=== PATIENT | male | born 1970 | race American Indian/Alaskan Native ===

== ENCOUNTER 2017-04-14 14:54 | Inpatient (IN) | payer OTHER ==
[2017-04-14] MEDS ORDERED: Sodium Chloride 0.9% 1,000 ML IV STA (15:21)
[2017-04-14] MEDS ORDERED: Labetalol 5 mg/ml Inj 20ML IV STA ×2 (15:29→20:39)
--- NOTE | 2017-04-14 15:32 | ED PDOC ---
Arrival/HPI - General Chief Complaint: Headache Time Seen by Provider: 04/14/17 15:15 Historian: Patient - Critical Care Critical Care Minutes: 30 minutes - History of Present Illness Narrative History of Present Illness (Text): 04/14/17 46yo male w/PMhx of HTN, asthma, alcoholism, come in for evaluation of SOB developed for past few days. Pt describes, " will wake up at night feeling SOB. Also noted some SOB while walking yesterday". Pt admits, (+) cold sx for past few days associated with nasal congestion, sore throat, dry cough. At present time, pt c/o mild frontal headache , described as " squeezing, localized". Otherwise, pt denies known fever, denies severe headache, visual changes, focal deficits, denies neck pain, drooling, dysphagia, dyspnea, CP, wheezing, palpitation, diaphoresis, abd. pain, V/D, back pain, UTI sx. On triage fever noted and HTN. Pt admits did not take his BP medication today. Pt recall last stress test- 8 months ago, was normal. Last alcohol intake- this AM " glass of scotch". Ambulate to Ed for evaluation, strong alcohol odor noted. Past Medical History - Provider Review Nursing Documentation Reviewed: Yes - Travel History Have you recently traveled outside [place] w/in the past 3 mons?: No - Infectious Disease Hx of Infectious Diseases: None - Tetanus Immunization Tetanus Immunization: Unknown - Cardiac Hx Hypertension: Yes - Pulmonary Hx Respiratory Disorders: No - Neurological Hx Neurological Disorder: No - HEENT Hx HEENT Disorder: No - Renal Hx Renal Disorder: No - Endocrine/Metabolic Hx Endocrine Disorders: No - Hematological/Oncological Hx Blood Disorders: No - Integumentary Hx Dermatological Disorder: No - Musculoskeletal/Rheumatological Hx Musculoskeletal Disorders: No - Gastrointestinal Hx Gastrointestinal Disorders: No - Genitourinary/Gynecological Hx Genitourinary Disorders: No - Psychiatric Hx Substance Use: No Other/Comment: Sleep Difficulties - Anesthesia Hx Anesthesia: Yes Hx Anesthesia Reactions: No Hx Malignant Hyperthermia: No Family/Social History - Physician Review Nursing Documentation Reviewed: Yes Family/Social History: No Known Family HX Smoking Status: Heavy Smoker > 10 Cigarettes Daily Hx Alcohol Use: Yes Hx Substance Use: No Allergies/Home Meds Allergies/Adverse Reactions: Allergies No Known Allergies Allergy (Verified 04/25/16 07:44) Home Medications: Home Meds Medication Instructions Recorded Confirmed Nebivolol [Bystolic] 20 mg PO DAILY 04/14/17 04/14/17 Review of Systems - Physician Review All systems were reviewed & negative as marked: Yes - Review of Systems Constitutional: Fevers Eyes: Normal ENT: Normal Respiratory: SOB, Cough. absent: Wheezing Cardiovascular: Normal. absent: Chest Pain, Orthopnea Gastrointestinal: Normal Genitourinary Male: Normal Musculoskeletal: Normal Skin: Normal Neurological: Headache, Dizziness Endocrine: Normal Hemo/Lymphatic: Normal Psychiatric: Normal Physical Exam Vital Signs Reviewed: Yes Vital Signs Temp Pulse Resp BP Pulse Ox 04/14/17 18:20 100.8 F H 90 18 175/97 H 98 04/14/17 16:43 102 F H 93 H 19 197/102 H 98 04/14/17 15:49 98 H 185/108 H 04/14/17 15:10 102.5 F H 100 H 24 185/108 H 99 Temperature: Febrile Blood Pressure: Hypertensive Pulse: Tachycardic Respiratory Rate: Normal Appearance: Positive for: Well-Appearing, Non-Toxic, Comfortable Pain Distress: Mild Mental Status: Positive for: Alert and Oriented X 3 - Systems Exam Head: Present: Atraumatic, Normocephalic Pupils: Present: PERRL Extroacular Muscles: Present: EOMI Conjunctiva: Present: Normal Ears: Present: NORMAL TM. No: Erythema Mouth: Present: Moist Mucous Membranes, Normal Lips. No: Drooling Pharnyx: No: ERYTHEMA, EXUDATE Nose (Internal): Present: Clear Mucous Neck: Present: Trachea Midline. No: JVD, Bruit (B/L) Respiratory/Chest: Present: Good Air Exchange, Wheezes (scatterdd Left base wheezing. BS equal B/L.). No: Respiratory Distress, Accessory Muscle Use Cardiovascular: Present: Regular Rate and Rhythm, Normal S1, S2. No: Murmurs Abdomen: Present: Normal Bowel Sounds. No: Tenderness, Distention, Peritoneal Signs, Rebound, Guarding Back: No: CVA Tenderness Upper Extremity: Present: Normal ROM. No: Deformity Lower Extremity: Present: Normal ROM. No: Edema, CALF TENDERNESS, Swelling, Deformity Neurological: Present: GCS=15, Speech Normal, Normal Sensory Function, Norm Deep Tendon Reflexes Skin: Present: Warm, Dry, Normal Color. No: Rashes Psychiatric: Present: Alert, Oriented x 3, Normal Insight, Normal Concentration Medical Decision Making ED Course and Treatment: 04/14/17 At 16:43, results review with ED attending, who personally re-evaluated patient. As per , no code sepsis called. Additional blood work, hydration, OBS recommend. At 17:39, pt resting comfortably in bed, not in any apparent distress. fever improved, hemodynamicaly stable. Blood work review, CBC- normal, CMP- high LFT, LDH EKG, CXR review, no acute abnormalities. US gallbladder and pancreas and appears normal study. Case discussed with again, and admission to telemetry with Dx: Fever , SOB, alcohol withdrawal recommend now. Case discussed with Med-on-call and admission arranged. At 19:45, tried to reach med-on-call / covering since 17:40 , no answer. case discussed with Hospitalist and admission arranged to telemetry. - Lab Interpretations Lab Results: 04/14/17 15:30 04/14/17 15:30 Lab Results 04/14/17 17:03: Ammonia 21 04/14/17 17:02: Urine Opiates Screen Negative, Urine Methadone Screen Negative, Ur Barbiturates Screen Negative, Ur Phencyclidine Scrn Negative, Ur Amphetamines Screen Negative, U Benzodiazepines Scrn Negative, U Oth Cocaine Metabols Negative, U Cannabinoids Screen Negative 04/14/17 17:02: Urine Color Yellow, Urine Appearance Clear, Urine pH 6.0, Ur Specific [place] 1.010, Urine Protein Trace H, Urine Glucose (UA) Negative, Urine Ketones Negative, Urine Blood Trace-intact H, Urine Nitrate Negative, Urine Bilirubin Negative, Urine Urobilinogen 0.2, Ur Leukocyte Esterase Negative , Urine RBC 0 - 2, Urine WBC 1 - 3, Ur Epithelial Cells 1 - 3 04/14/17 16:45: Influenza Typ A,B (EIA) Negative for flu a/b 04/14/17 15:30: Alcohol, Quantitative 105 H 04/14/17 15:30: Sodium 134, Chloride 95 L, Potassium 3.6, Carbon Dioxide 24, Anion Gap 18, BUN 7, Creatinine 1.0, Est GFR ( Amer) > 60, Est GFR (Non- Af Amer) > 60, Random Glucose 96, Calcium 9.0, Total Bilirubin 0.6, AST 675 H, ALT 166 H, Alkaline Phosphatase 143 H, Lactate Dehydrogenase 1786 H, Total Creatine Kinase 268 H, CK-MB (CK-2) 0.3, CK-MB (CK-2) % Cancelled, Troponin I < 0.01, Total Protein 8.4 H, Albumin 4.6, Globulin 3.7, Albumin/Globulin Ratio 1.2 , Amylase 84, Lipase 390 H 04/14/17 15:30: PT 13.4 H, INR 1.22 H, APTT 31.9 04/14/17 15:30: pO2 40, VBG pH 7.44 H, VBG pCO2 40.0, VBG HCO3 27.2, VBG Total CO2 28.4 H, VBG O2 Sat (Calc) 81.1 H, VBG Base Excess 2.8 H, VBG Potassium 3.6, Sodium 132.0, Chloride 95.0 L, Glucose 98, Lactate 2.3 H, FiO2 21.0, Venous Blood Potassium 3.6 04/14/17 15:30: WBC 5.7, RBC 4.37, Hgb 13.6 L, Hct 39.8 L, MCV 91.1, MCH 31.1, MCHC 34.2, RDW 13.6, Plt Count 123, MPV 10.9, Gran % 69.8 H, Lymph % (Auto) 18.2 L, [place] % (Auto) 11.5 H, Eos % (Auto) 0.0 L, Baso % (Auto) 0.5, Gran # 3.96 , Lymph # 1.0 L, [place] # 0.7 H, Eos # 0.0, Baso # 0.03 Interpretation: Abnormal lab values - RAD Interpretation Radiology Orders: 04/14/17 15:17 CHEST PORTABLE [RAD] Stat 04/14/17 16:43 GALLBLADDER & PANCREAS [US] Stat CXR: (-) acute consolidation - EKG Interpretation EKG Interpretation (Text): 04/14/17 16:45 SR@92/min, LAD, T wave inversion in III, prolong QT, no acute ST-T changes. - Medication Orders Current Medication Orders: Multivitamins/Vitamin C 10 ml/Thiamine HCl 100 mg/ Folic Acid 1 mg/ Dextrose 1, 011.2 mls @ 1,000 mls/hr IV .Q1H1M ONE Stop: 04/14/17 20:44 Discontinued Medications Acetaminophen (Tylenol 325mg Tab) 975 mg PO STAT STA Stop: 04/14/17 15:22 Last Admin: 04/14/17 15:49 Dose: 975 mg MAR Pain/Vitals Document 04/14/17 15:49 RD (Rec: 04/14/17 15:49 RD [id number]) Pain Reassessment Is This A Pain ReAssessment? No Sleep Is patient sleeping during reassessment? No Presence of Pain Presence of Pain No Sodium Chloride (Sodium Chloride 0.9%) 1,000 mls @ 999 mls/hr IV .Q1H1M STA Stop: 04/14/17 16:21 Last Admin: 04/14/17 15:35 Dose: 999 mls/hr eMAR Start Stop Document 04/14/17 15:35 RD (Rec: 04/14/17 15:43 RD [id number]) Intravenous Solution Start Date 04/14/17 Start Time 15:35 End Date 04/14/17 End time 16:35 Total Infusion Time 60 Labetalol HCl (Trandate) 20 mg IV STAT STA Stop: 04/14/17 15:30 Last Admin: 04/14/17 15:49 Dose: 20 mg eMAR Start Stop Document 04/14/17 15:49 RD (Rec: 04/14/17 15:50 RD [id number]) Intravenous Solution Start Date 04/14/17 Start Time 15:50 End Date 04/14/17 End time 15:52 Total Infusion Time 2 MAR Pulse and Blood Pressure Document 04/14/17 15:49 RD (Rec: 04/14/17 15:50 RD [id number]) Pulse Pulse Rate (60-90) 98 Blood Pressure Blood Pressure (100/60-150/90) 185/108 Lorazepam (Ativan) 2 mg IVP STAT STA PRN Reason: Protocol Stop: 04/14/17 16:43 Last Admin: 04/14/17 16:51 Dose: 2 mg IVP Administration Document 04/14/17 16:51 RD (Rec: 04/14/17 16:52 RD [id number]) Charges for Administration # of IVP Administrations 1 Disposition/Present on Arrival - Present on Arrival Any Indicators Present on Arrival: No History of DVT/PE: No History of Uncontrolled Diabetes: No Urinary Catheter: No History of Decub. Ulcer: No History Surgical Site Infection Following: None - Disposition Have Diagnosis and Disposition been Completed?: Yes Diagnosis: Chest pain, Alcohol withdrawal, Fever Disposition: HOSPITALIZED Disposition Time: 17:12 Patient Plan: Admission Patient Problems: Current Active Problems Problem Status Onset Chest pain Acute Alcohol withdrawal Acute Fever Acute Condition: GOOD Discharge Instructions (ExitCare): Chest Pain (ED) Referrals: Radha Mccoy, [Primary Care Provider] - Follow up with primary Forms: [place] (Khmer)
[2017-04-14 15:47] LABS: VENOUS BLOOD GAS BASE EXCESS 2.8 mmol/L (0.0-2.0); VENOUS BLOOD PH 7.44 (7.32-7.43)
[2017-04-14 15:52] LABS: BASO # 0.03 K/mm3 (0.0-2.0); BASO % 0.5 % (0.0-3.0); GRAN # 3.96 (1.4-6.5); GRAN % 69.8 % (50.0-68.0); HEMATOCRIT 39.8 % (42.0-52.0); LYMPH % 18.2 % (22.0-35.0); MEAN CELL VOLUME 91.1 fl (80.0-105.0); MEAN CORPUSCULAR HEMOGLOBIN 31.1 pg (25.0-35.0); MEAN CORPUSCULAR HGB CONC 34.2 g/dl (31.0-37.0); MEAN PLATELET VOLUME 10.9 fl (7.0-11.0); MONO # 0.7 (0.1-0.6); MONO % 11.5 % (1.0-6.0); RED CELL DISTRIBUTION WIDTH 13.6 % (11.5-14.5); WHITE BLOOD COUNT 5.7 10^3/ul (4.5-11.0)
[2017-04-14 16:07] LABS: ALB/GLOB RATIO 1.2 (1.1-1.8); ALKALINE PHOSPHATASE 143 U/L (38-126); ALT/SGPT 166 U/L (7-56); AMYLASE 84 U/L (35-125); AST/SGOT 675 U/L (17-59); BILIRUBIN,TOTAL 0.6 mg/dL (0.2-1.3); BLOOD UREA NITROGEN 7 mg/dL (7-21); CARBON DIOXIDE 24 mmol/L (21-33); CHLORIDE 95 mmol/L (98-107); GFR AFRICAN-AMERICAN > 60; GLUCOSE,RANDOM 96 mg/dL (70-110); INR 1.22 (0.93-1.08); LIPASE 390 U/L (23-300); PARTIAL THROMBOPLASTIN TIME 31.9 Seconds (25.1-36.5); POTASSIUM 3.6 mmol/L (3.6-5.0); SODIUM 134 mmol/L (132-148); TOTAL PROTEIN 8.4 g/dL (5.8-8.3)
[2017-04-14 16:14] LABS: TROPONIN I < 0.01 ng/mL
--- NOTE | 2017-04-14 17:07 | RAD ---
HISTORY: SOB COMPARISON: 04/25/2016 FINDINGS: LUNGS: No active pulmonary disease. PLEURA: No significant pleural effusion identified, no pneumothorax apparent. CARDIOVASCULAR: Normal. OSSEOUS STRUCTURES: No significant abnormalities. VISUALIZED UPPER ABDOMEN: Normal. OTHER FINDINGS: None. IMPRESSION: No active disease.
[2017-04-14 17:17] LABS: URINE BILIRUBIN NEGATIVE (NEGATIVE); URINE BLOOD TRACE-INTACT (NEGATIVE); URINE GLUCOSE (UA) NEGATIVE (NEGATIVE); URINE KETONE NEGATIVE (NEGATIVE); URINE LEUKOCYTE ESTERASE NEGATIVE Leu/uL (NEGATIVE); URINE PROTEIN TRACE mg/dL (<30 mg/dL); URINE UROBILINOGEN 0.2 E.U./dL (<1 E.U./dL)
[2017-04-14 17:46] LABS: URINE APPEARANCE CLEAR (CLEAR); URINE COLOR YELLOW (YELLOW)
[2017-04-14 18:11] LABS: URINE RBC 0 - 2 /hpf (0-2)
--- NOTE | 2017-04-14 18:16 | US ---
HISTORY: fever, pain COMPARISON: None available. TECHNIQUE: Sonographic evaluation of the right upper quadrant of the abdomen. FINDINGS: LIVER: Measures approximately 20.6 cm in maximum dimension. Echogenic liver may be seen in setting of hepatic parenchymal disease or fatty infiltration. No focal hepatic mass identified. The main portal vein appears patent with normal directional flow. No intrahepatic bile duct dilatation. GALLBLADDER: Contracted gallbladder limits evaluation. No gallstones. No gallbladder wall thickening or pericholecystic edema. Negative sonographic Jacobs's sign as assessed by the consumer affairs director. COMMON BILE DUCT: Measures 3 mm. PANCREAS: Not well-visualized. RIGHT KIDNEY: Measures 7.2 x 4.6 x 5.1 cm. No obstructing calculus or hydronephrosis identified. AORTA: Limited visualization appears grossly unremarkable. IVC: Limited visualization appears grossly unremarkable. OTHER FINDINGS: None . IMPRESSION: Contracted gallbladder state limits evaluation. Otherwise unremarkable. Hepatomegaly. Echogenic liver may be seen in setting of hepatic parenchymal disease or fatty infiltration.
[2017-04-14] MEDS ORDERED: Multivitamin (MVI) 10 ML, Thiamine 100 MG, Folic Acid 1 MG in Dextrose 5% In Water 1,00... IV ONE (19:44)
[2017-04-14 19:55] LABS: VENOUS BLOOD PH 7.43 (7.32-7.43)
[2017-04-14] MEDS ORDERED: Multivitamin (MVI) 10 ML in Sodium Chloride 0.9% 1,000 ML IV ONE (22:12)
[2017-04-14] MEDS ORDERED: Albuterol-Ipratrop 3 mg / 0.5 (3 ml) UD IH PRN (22:36)
[2017-04-15 00:59] VITALS: BMI 24.4
--- NOTE | 2017-04-15 03:48 | CP.PCM.HP ---
<Bennett Reyez - Last Filed: 04/15/17 04:47> History of Present Illness - History of Present Illness History of Present Illness: 46 year old male with a past medical history significant for hypertension, alcoholism, asthma, and tobacco use who presents inebriated with complaints of dyspnea and cold-like symptoms for the past week that have now worsened in the past two days since he has now developed a sore throat, frontal headache, hyperacusis, and dyspnea when he lies flat. He denies chest pain, diaphoresis, dizziness, or palpitations. Nothing has improved his symptoms and he states that the worsening dyspnea and sore throat is what brings him in. He is shaky, anxious, exhibits a decreased attention span, and is constantly urinating and defecating. PMD: Denies Surgical History: Denies Past medical history: hypertension, alcoholism, asthma, tobacco use Social: Smoker 30 pack year history, 12-24 alcohol drinks a day, denies illicit drug use. FH: denies Present on Admission - Present on Admission Any Indicators Present on Admission: No Review of Systems - Constitutional Constitutional: As Per HPI Past Patient History - Infectious Disease Hx of Infectious Diseases: None - Tetanus Immunizations Tetanus Immunization: Unknown - Past Social History Smoking Status: Smoker Currrent Status Unknown - CARDIAC Hx Cardiac Disorders: Yes Hx Hypertension: Yes - PULMONARY Hx Respiratory Disorders: Yes Hx Asthma: Yes - NEUROLOGICAL Hx Neurological Disorder: No - HEENT Hx HEENT Problems: No - RENAL Hx Chronic Kidney Disease: No - ENDOCRINE/METABOLIC Hx Endocrine Disorders: No - HEMATOLOGICAL/ONCOLOGICAL Hx Blood Disorders: No - INTEGUMENTARY Hx Dermatological Problems: No - MUSCULOSKELETAL/RHEUMATOLOGICAL Hx Musculoskeletal Disorders: No Hx Falls: No - GASTROINTESTINAL Hx Gastrointestinal Disorders: No - GENITOURINARY/GYNECOLOGICAL Hx Genitourinary Disorders: No - PSYCHIATRIC Hx Psychophysiologic Disorder: Yes (ALCOHOLISM) Other/Comment: Sleep Difficulties - SURGICAL HISTORY Hx Surgeries: Yes - ANESTHESIA Hx Anesthesia: Yes Hx Anesthesia Reactions: No Hx Malignant Hyperthermia: No Meds Allergies/Adverse Reactions: Allergies Allergy/AdvReac Type Severity Reaction Status Date / Time No Known Allergies Allergy Verified 04/25/16 07:44 Physical Exam - Constitutional Additional comments: shaky and confused - Head Exam Head Exam: ATRAUMATIC, NORMOCEPHALIC - Eye Exam Eye Exam: EOMI, Normal appearance, PERRL - ENT Exam ENT Exam: Mucous Membranes Moist Additional comments: posterior pharynx is erythematous - Neck Exam Neck exam: Positive for: Normal Inspection - Respiratory Exam Respiratory Exam: Clear to Auscultation Bilateral, NORMAL BREATHING PATTERN - Cardiovascular Exam Cardiovascular Exam: Tachycardia, +S1, +S2 - GI/Abdominal Exam GI & Abdominal Exam: Normal Bowel Sounds, Soft - Rectal Exam Rectal Exam: Deferred - Extremities Exam Extremities exam: Positive for: normal inspection. Negative for: calf tenderness - Back Exam Back exam: CVA tenderness (L), NORMAL INSPECTION. absent: CVA tenderness (R) - Neurological Exam Neurological exam: Oriented x3 Additional comments: shaky, anxiously confused. - Psychiatric Exam Psychiatric exam: Anxious - Skin Additional comments: extremly warm to touch Results - Vital Signs Recent Vital Signs: Last Vital Signs Temp 101.0 F H 04/14/17 23:36 Pulse 90 04/14/17 23:02 Resp 20 04/14/17 23:02 BP 180/99 H 04/14/17 23:02 Pulse Ox 100 04/14/17 22:28 - Labs Result Diagrams: 04/14/17 15:30 04/14/17 15:30 Labs: Laboratory Results - last 24 hr 04/14/17 19:51 pO2 48 VBG pH 7.43 VBG pCO2 40.0 VBG HCO3 26.5 VBG Total CO2 27.7 VBG O2 Sat (Calc) 87.9 H VBG Base Excess 2.0 VBG Potassium 3.7 Sodium 134.0 Chloride 98.0 Glucose 88 Lactate 2.0 FiO2 21.0 Venous Blood Potassium 3.7 Assessment & Plan - Assessment and Plan (Free Text) Assessment: 46 year old alcoholic with asthma and hypertension who presents inebriated to [facility] [place] with fevers, chills, and delirium tremens. Plan: 1)Alcohol withdrawal/delirium tremens with transaminitis and mild elevation in lipase - Ativan 2 mg q3h MAGGIE - Multivitamin Infusion - Morning CMP, amylase, and lipase - RUQ Abdominal US reads as Contracted gallbladder state limits evaluation. Otherwise unremarkable. Hepatomegaly. Echogenic liver may be seen in setting of hepatic parenchymal disease or fatty infiltration. 2) URI, fever, leukocytosis - Influenza A and B negative - Albuterol/Ipratropium TID PRN for SOB - Azithromycin - Ceftriaxone - Tylenol 650 mg q6h for fever 3) Hypertension - Carvedilol 25 mg BID 4) DVT/Gi prophylaxis - Protonix 40 mg PO daily - SCD - Date & Time Date: 04/15/17 Time: 04:17 <Allen Garcia - Last Filed: 04/15/17 16:31> Results - Vital Signs Recent Vital Signs: Last Vital Signs Temp 103.6 F H 04/15/17 15:02 Pulse 135 H 04/15/17 12:55 Resp 20 04/15/17 12:00 BP 168/108 H 04/15/17 12:55 Pulse Ox 97 04/15/17 06:45 - Labs Result Diagrams: 04/15/17 05:50 04/15/17 15:35 Labs: Laboratory Results - last 24 hr 04/14/17 04/15/17 04/15/17 19:51 05:50 05:50 WBC 4.8 RBC 4.24 Hgb 12.9 L Hct 38.4 L MCV 90.6 MCH 30.4 MCHC 33.6 RDW 13.5 Plt Count 108 L MPV 11.2 H Gran % 63.2 Lymph % (Auto) 26.4 [place] % (Auto) 9.8 H Eos % (Auto) 0.0 L Baso % (Auto) 0.6 Gran # 3.02 Lymph # 1.3 [place] # 0.5 Eos # 0.0 Baso # 0.03 pO2 48 VBG pH 7.43 VBG pCO2 40.0 VBG HCO3 26.5 VBG Total CO2 27.7 VBG O2 Sat (Calc) 87.9 H VBG Base Excess 2.0 VBG Potassium 3.7 Sodium 134.0 134 Chloride 98.0 98 Glucose 88 Lactate 2.0 FiO2 21.0 Potassium 3.5 L Carbon Dioxide 26 Anion Gap 14 BUN 8 Creatinine 0.9 Est GFR ( Amer) > 60 Est GFR (Non-Af Amer) > 60 Random Glucose 102 Calcium 8.5 Total Bilirubin 0.6 AST 659 H ALT 160 H Alkaline Phosphatase 118 Total Protein 7.3 Albumin 4.0 Globulin 3.3 Albumin/Globulin Ratio 1.2 Amylase 93 Lipase 624 H Venous Blood Potassium 3.7 04/15/17 15:35 WBC RBC Hgb Hct MCV MCH MCHC RDW Plt Count MPV Gran % Lymph % (Auto) [place] % (Auto) Eos % (Auto) Baso % (Auto) Gran # Lymph # [place] # Eos # Baso # pO2 VBG pH VBG pCO2 VBG HCO3 VBG Total CO2 VBG O2 Sat (Calc) VBG Base Excess VBG Potassium Sodium 134 Chloride 98 Glucose Lactate FiO2 Potassium 3.8 Carbon Dioxide 23 Anion Gap 17 BUN 8 Creatinine 0.8 Est GFR ( Amer) > 60 Est GFR (Non-Af Amer) > 60 Random Glucose 105 Calcium 9.1 Total Bilirubin AST ALT Alkaline Phosphatase Total Protein Albumin Globulin Albumin/Globulin Ratio Amylase Lipase Venous Blood Potassium Attending/Attestation - Attestation I have personally seen and examined this patient.: Yes I have fully participated in the care of the patient.: Yes I have reviewed all pertinent clinical information: Yes Notes (Text): 04/15/17 16:31 Patient was seen when he was in ER # 1. Agree with history, physical examination, assessment and plan.
[2017-04-15] MEDS ORDERED: Pantoprazole 40 mg EC Tab PO SCH (06:00)
[2017-04-15 06:43] LABS: ALB/GLOB RATIO 1.2 (1.1-1.8); ALKALINE PHOSPHATASE 118 U/L (38-126); ALT/SGPT 160 U/L (7-56); AMYLASE 93 U/L (35-125); AST/SGOT 659 U/L (17-59); BILIRUBIN,TOTAL 0.6 mg/dL (0.2-1.3); BLOOD UREA NITROGEN 8 mg/dL (7-21); CALCIUM 8.5 mg/dL (8.4-10.5); CARBON DIOXIDE 26 mmol/L (21-33); CHLORIDE 98 mmol/L (98-107); GFR AFRICAN-AMERICAN > 60; GLUCOSE,RANDOM 102 mg/dL (70-110); LIPASE 624 U/L (23-300); POTASSIUM 3.5 mmol/L (3.6-5.0); SODIUM 134 mmol/L (132-148); TOTAL PROTEIN 7.3 g/dL (5.8-8.3)
[2017-04-15 07:12] LABS: BASO # 0.03 K/mm3 (0.0-2.0); BASO % 0.6 % (0.0-3.0); GRAN # 3.02 (1.4-6.5); GRAN % 63.2 % (50.0-68.0); HEMATOCRIT 38.4 % (42.0-52.0); LYMPH # 1.3 (1.2-3.4); LYMPH % 26.4 % (22.0-35.0); MEAN CELL VOLUME 90.6 fl (80.0-105.0); MEAN CORPUSCULAR HEMOGLOBIN 30.4 pg (25.0-35.0); MEAN CORPUSCULAR HGB CONC 33.6 g/dl (31.0-37.0); MEAN PLATELET VOLUME 11.2 fl (7.0-11.0); MONO # 0.5 (0.1-0.6); MONO % 9.8 % (1.0-6.0); RED CELL DISTRIBUTION WIDTH 13.5 % (11.5-14.5); WHITE BLOOD COUNT 4.8 10^3/ul (4.5-11.0)
[2017-04-15] MEDS ORDERED: Multivitamin Therapeutic Tab PO SCH (08:00)
[2017-04-15] MEDS ORDERED: Levalbuterol 0.63 MG/3 ML Inhal Soln UD IH PRN (08:37)
[2017-04-15] MEDS: Folic Acid 1 MG, Thiamine 100 MG, Multivitamin (MVI) 10 ML in Dextrose 5% In Water 1,00... IV SCH ×2 (09:54→21:05)
[2017-04-15] MEDS ORDERED: NEBIVOLOL 20 MG PO SCH (10:00)
[2017-04-15] MEDS: Metoprolol 1 mg/ml Inj IVP PRN ×2 (10:08→16:42)
--- NOTE | 2017-04-15 10:16 | CARD ---
APPROVED REPORT EKG Measurement Heart [id number] <Conclusion> Normal sinus rhythm LAD PRWP NSSTW changes, new
[2017-04-15] MEDS: cefTRIAXone 2 GM IN NS 2 GM/100 ML BAG IVPB SCH (13:06)
[2017-04-15] MEDS: Azithromycin 500MG/NS 250ml 500 MG/250 ML BAG IVPB SCH (14:18)
[2017-04-15 15:59] LABS: BLOOD UREA NITROGEN 8 mg/dL (7-21); CALCIUM 9.1 mg/dL (8.4-10.5); CARBON DIOXIDE 23 mmol/L (21-33); CHLORIDE 98 mmol/L (98-107); GFR AFRICAN-AMERICAN > 60; GLUCOSE,RANDOM 105 mg/dL (70-110); POTASSIUM 3.8 mmol/L (3.6-5.0); SODIUM 134 mmol/L (132-148)
[2017-04-16] MEDS: Folic Acid 1 MG, Thiamine 100 MG, Multivitamin (MVI) 10 ML in Dextrose 5% In Water 1,00... IV SCH ×2 (06:35→16:45)
[2017-04-16 07:23] LABS: ALB/GLOB RATIO 1.1 (1.1-1.8); ALKALINE PHOSPHATASE 152 U/L (38-126); ALT/SGPT 363 U/L (7-56); AST/SGOT 1374 U/L (17-59); BASO # 0.03 K/mm3 (0.0-2.0); BASO % 0.5 % (0.0-3.0); BILIRUBIN,TOTAL 0.9 mg/dL (0.2-1.3); BLOOD UREA NITROGEN 14 mg/dL (7-21); CALCIUM 9.2 mg/dL (8.4-10.5); CARBON DIOXIDE 23 mmol/L (21-33); CHLORIDE 95 mmol/L (98-107); EOS % 0.2 % (1.5-5.0); GFR AFRICAN-AMERICAN > 60; GLUCOSE,RANDOM 110 mg/dL (70-110); GRAN # 3.78 (1.4-6.5); GRAN % 65.9 % (50.0-68.0); LYMPH # 1.5 (1.2-3.4); LYMPH % 26.9 % (22.0-35.0); MEAN CELL VOLUME 90.7 fl (80.0-105.0); MEAN CORPUSCULAR HGB CONC 34.2 g/dl (31.0-37.0); MEAN PLATELET VOLUME 11.9 fl (7.0-11.0); MONO # 0.4 (0.1-0.6); MONO % 6.5 % (1.0-6.0); POTASSIUM 3.6 mmol/L (3.6-5.0); RED CELL DISTRIBUTION WIDTH 13.5 % (11.5-14.5); SODIUM 132 mmol/L (132-148); TOTAL PROTEIN 8.5 g/dL (5.8-8.3); WHITE BLOOD COUNT 5.7 10^3/ul (4.5-11.0)
[2017-04-16] MEDS: Metoprolol 1 mg/ml Inj IVP PRN (08:20)
--- NOTE | 2017-04-16 09:26 | CP.PCM.PN ---
Subjective - Date & Time of Evaluation Date of Evaluation: 04/16/17 Time of Evaluation: 09:23 - Subjective Subjective: PGY-[address] Erwin Patient seen and examined at bedside. No acute distress. Overnight nurse reports fever which resolved after cooling blanket and toradol. Patient was also found t have high BP this morning and was given prn lopressor. Patient reported being cold and requested to remove the cooling blanket. However patient continues to have fevers, will place patient on cooling blankets. Patient passed bedside swallow evaluation. He denies any other complaints including chest pain, sob, abd pain, n/v, hallucination, seizures. Objective - Vital Signs/Intake and Output Vital Signs (last 24 hours): Temp Pulse Resp BP Pulse Ox 98.4 F 88 20 172/106 H 100 04/16/17 06:30 04/16/17 08:20 04/16/17 06:30 04/16/17 08:20 04/16/17 06:30 Intake and Output: 04/16/17 04/16/17 06:59 18:59 Intake Total 1200 Output Total 1000 Balance 200 - Medications Medications: Current Medications Hydralazine HCl (Apresoline) 10 mg IVP Q4 MAGGIE Last Admin: 04/16/17 04:54 Dose: 10 mg Azithromycin (Zithromax 500mg In Ns) 500 mg in 250 mls @ 167 mls/hr IVPB DAILY MAGGIE PRN Reason: Protocol Last Admin: 04/15/17 14:18 Dose: 167 mls/hr Ceftriaxone Sodium (Rocephin 2 Gm Ivpb) 2 gm in 100 mls @ 100 mls/hr IVPB DAILY MAGGIE PRN Reason: Protocol Last Admin: 04/15/17 13:06 Dose: 100 mls/hr Folic Acid 1 mg/ Thiamine HCl 100 mg/ Multivitamins/Vitamin C 10 ml/ Dextrose 1 ,011.2 mls @ 100 mls/hr IV .Q10H7M MAGGIE Last Admin: 04/16/17 06:35 Dose: 100 mls/hr Levalbuterol HCl (Xopenex) 0.63 mg IH [id number] PRN PRN Reason: Shortness of Breath Lorazepam (Ativan) 1 mg IVP Q4H PRN; Protocol PRN Reason: Anxiety Last Admin: 12/23/17 06:33 Dose: 1 mg Lorazepam (Ativan) 2 mg IVP Q2H MAGGIE PRN Reason: Protocol Last Admin: 04/16/17 08:22 Dose: 2 mg Metoprolol Tartrate (Lopressor) 5 mg IVP Q2H PRN PRN Reason: Heart Rate>100 Last Admin: 04/16/17 08:20 Dose: 5 mg Nicotine (Nicoderm Cq) 1 patch TD DAILY MAGGIE Last Admin: 04/15/17 10:17 Dose: 1 patch - Labs Labs: 04/16/17 06:00 04/16/17 06:00 PT 13.4 SECONDS (9.4-12.5) H 04/14/17 15:30 INR 1.22 (0.93-1.08) H 04/14/17 15:30 APTT 31.9 Seconds (25.1-36.5) 04/14/17 15:30 - Constitutional Appears: No Acute Distress - Head Exam Head Exam: ATRAUMATIC, NORMAL INSPECTION, NORMOCEPHALIC - Eye Exam Eye Exam: EOMI, Normal appearance. absent: Scleral icterus - ENT Exam ENT Exam: Mucous Membranes Moist - Respiratory Exam Respiratory Exam: Clear to Ausculation Bilateral, NORMAL BREATHING PATTERN. absent: Rhonchi, Wheezes, Respiratory Distress - Cardiovascular Exam Cardiovascular Exam: REGULAR RHYTHM. absent: Tachycardia, Diastolic murmur, Murmur - GI/Abdominal Exam GI & Abdominal Exam: Soft, Normal Bowel Sounds. absent: Distended, Firm, Tenderness - Extremities Exam Additional comments: positive for tremors - Neurological Exam Neurological Exam: Alert, Awake, Oriented x3 - Skin Skin Exam: Dry, Intact, Normal Color, Warm Assessment and Plan - Assessment and Plan (Free Text) Assessment: 46 year old alcoholic with asthma and hypertension who presents inebriated to [facility] [place] with fevers, chills, and delirium tremens and transaminitis. Plan: 1.Alcohol withdrawal/delirium tremens - Ativan 2 mg q3h MAGGIE - Multivitamin Infusion - Morning CMP, amylase, and lipase - RUQ Abdominal US reads as Contracted gallbladder state limits evaluation. Otherwise unremarkable. Hepatomegaly. Echogenic liver may be seen in setting of hepatic parenchymal disease or fatty infiltration. 2. fever - without leukocytosis - Influenza A and B negative - xcr negative - will stop Azithromycin due to elevated LFTs - Continue Ceftriaxone - will use motrin 600mg PO prn q6 for fever, patient passed bedsdie swallow eval - will avoid Tylenol due to elevated LFTs - Albuterol/Ipratropium TID PRN for SOB - blood cultures pending - urine cultures neagtive 3. transaminitis - with mild elevation in lipase - most likely from alcohol - hepatitis panel - avoid hepatotocix medication - GI consulted 4. Hypertension - continue Carvedilol 25 mg BID 5. DVT/GI prophylaxis - Protonix 40 mg PO daily - SCD case discussed with Dr. Erwin
[2017-04-16] MEDS: cefTRIAXone 2 GM IN NS 2 GM/100 ML BAG IVPB SCH (09:44)
[2017-04-16] MEDS: Azithromycin 500MG/NS 250ml 500 MG/250 ML BAG IVPB SCH (10:59)
--- NOTE | 2017-04-16 20:53 | CON ---
GASTROENTEROLOGY CONSULTATION DATE: 04/16/2017 REQUESTING PHYSICIAN: Dr. Gunter REASON FOR CONSULTATION: I have been asked to see this 46-year-old male who comes to the hospital with sore throat, cough and headaches and found to have elevated liver enzymes. On admission to the hospital on 04/14/2017, his liver enzymes were 675 AST, ALT 166, alkaline phosphatase 143, total bilirubin was 0.6, 24 hours later his AST is up to 1374, ALT 363, alkaline phosphatase of 152. Review of his medications reveals that the patient was on IV Zithromax for possible bronchitis/pneumonia. His alcohol level on admission to the hospital was 105. He denied any acetaminophen use at home. He did receive one dose of 650 mg of acetaminophen here in the hospital for control of fever. He currently denies any abdominal pain, nausea, vomiting, dark urine, fevers or chills. PAST MEDICAL HISTORY: Notable for alcoholism. He states that he drank one shot of whiskey on the day of admission, his blood alcohol level on admission was 105. He also has a history of hypertension, asthma and nicotine dependence. SOCIAL HISTORY: He has smoked 1 to 2 packs of cigarettes per day for over 20 years. He consumes 12 to 24 drinks a day. He denies any illicit drug use. FAMILY HISTORY: Noncontributory. REVIEW OF SYSTEMS: A 14-point review of systems is notable for sore throat, headaches, and cough. HOME MEDICATIONS: Include Bystolic. PHYSICAL EXAMINATION GENERAL: Well-developed male, tremulous, awake and alert, in no distress. VITAL SIGNS: Reveal temperature of 100.4, blood pressure 149/87, heart rate of 90. HEENT: Reveal a silvestre complexion to his cheeks; sclerae white. Conjunctivae pink. Oral mucosa is dry. NECK: Supple. CHEST: Reveal lungs to be clear. HEART: Exam reveals regular rate and rhythm. ABDOMEN: Soft and nontender. No hepatomegaly. No mass. EXTREMITIES: Show no edema. LABORATORY DATA: Reveal AST 1374, ALT 363, alkaline phosphatase 152. CBC reveals white blood cell count 5.7, hemoglobin 15.4, platelet count 93,000. Coags showed PT 13.4, INR 1.22. Ultrasound of the gallbladder shows contracted gallbladder without stones, a echogenic enlarged liver consistent with steatosis. Chest x-ray was negative. IMPRESSION: 1. This 46-year-old male who comes to the hospital with shortness of breath, headache, sore throat with longstanding alcohol use with rising transaminases. His transaminases have essentially double since hospitalization. On admission his AST was 675 and ALT 166 with an alkaline phosphatase of 143. Normal total bilirubin, this morning his AST is 1374 with ALT of 363 and alkaline phosphatase of 152 with a normal total bilirubin. His LDH initially was elevated at 1786. Clinically, there is no evidence of hemolysis. I suspect that the rise in transaminases are secondary to alcoholic hepatitis as well as contribution from IV Zithromax, which can cause hepatotoxicity especially in alcoholics. 2. Impending delirium tremens as the patient has tremors. RECOMMENDATIONS: 1. Would continue the patient on IV fluids. 2. Observe closely for delirium tremens. 3. I have DC his Zithromax. 4. Would also check hepatitis serology and urine Legionella titers for atypical pneumonia. 4. Follow serial liver enzymes. 5. Check serum GILLES level and hepatitis serology. Pernell Lim MD
[2017-04-17] MEDS: Folic Acid 1 MG, Thiamine 100 MG, Multivitamin (MVI) 10 ML in Dextrose 5% In Water 1,00... IV SCH (03:07)
[2017-04-17 07:14] LABS: BASO # 0.02 K/mm3 (0.0-2.0); BASO % 0.5 % (0.0-3.0); EOS # 0.1 (0.0-0.7); EOS % 1.3 % (1.5-5.0); GRAN # 2.05 (1.4-6.5); GRAN % 52.9 % (50.0-68.0); HEMATOCRIT 39.2 % (42.0-52.0); LYMPH # 1.4 (1.2-3.4); LYMPH % 35.7 % (22.0-35.0); MEAN CELL VOLUME 89.1 fl (80.0-105.0); MEAN CORPUSCULAR HEMOGLOBIN 30.5 pg (25.0-35.0); MEAN CORPUSCULAR HGB CONC 34.2 g/dl (31.0-37.0); MONO # 0.4 (0.1-0.6); MONO % 9.6 % (1.0-6.0); WHITE BLOOD COUNT 3.9 10^3/ul (4.5-11.0)
[2017-04-17 08:00] LABS: ALB/GLOB RATIO 1.1 (1.1-1.8); ALKALINE PHOSPHATASE 127 U/L (38-126); ALT/SGPT 228 U/L (7-56); AST/SGOT 537 U/L (17-59); BILIRUBIN,TOTAL 0.8 mg/dL (0.2-1.3); BLOOD UREA NITROGEN 12 mg/dL (7-21); CALCIUM 8.8 mg/dL (8.4-10.5); CARBON DIOXIDE 23 mmol/L (21-33); CHLORIDE 95 mmol/L (98-107); GFR AFRICAN-AMERICAN > 60; GLUCOSE,RANDOM 105 mg/dL (70-110); POTASSIUM 3.5 mmol/L (3.6-5.0); SODIUM 128 mmol/L (132-148)
[2017-04-17] MEDS ORDERED: Multivitamin (MVI) 10 ML, Thiamine 100 MG, Folic Acid 1 MG in Sodium Chloride 0.9% 1,00... IV ONE (08:38)
[2017-04-17 09:00] VITALS: O2SAT 99
--- NOTE | 2017-04-17 09:41 | CP.PCM.PN ---
<Katlyn Goodwin - Last Filed: 04/17/17 10:36> Subjective - Date & Time of Evaluation Date of Evaluation: 04/17/17 Time of Evaluation: 09:36 - Subjective Subjective: PGY-2 Medicine Progress note Patient seen and examined at bedside on tele. No acute events overnight. Patient states he feels better but still feels overall unwell. He denies any fevers overnight. With patient's permission spoke with family at bedside, they are concerned about patient's alcohol consumption and would like more information on rehab. Patient denies chest pain, headache, dizziness, vomiting, nausea, diarrhea or constipation, dysuria. Patient is tolerating liquid diet Objective - Vital Signs/Intake and Output Vital Signs (last 24 hours): Temp Pulse Resp BP Pulse Ox 98.8 F 84 18 160/61 H 99 04/17/17 08:00 04/17/17 08:03 04/17/17 08:00 04/17/17 08:03 04/17/17 08:00 Intake and Output: 04/17/17 04/17/17 06:59 18:59 Intake Total 1980 Output Total 2200 Balance -220 - Medications Medications: Current Medications Hydralazine HCl (Apresoline) 10 mg IVP Q4 MAGGIE Last Admin: 04/17/17 08:03 Dose: 10 mg Ceftriaxone Sodium (Rocephin 2 Gm Ivpb) 2 gm in 100 mls @ 100 mls/hr IVPB DAILY MAGGIE PRN Reason: Protocol Last Admin: 04/16/17 09:44 Dose: 100 mls/hr Multivitamins/Vitamin C 10 ml/Thiamine HCl 100 mg/ Folic Acid 1 mg/ Sodium Chloride 1,011.2 mls @ 100 mls/hr IV .Q10H7M ONE Stop: 04/17/17 18:44 Potassium Chloride (Potassium Chloride 10 Meq/100 Ml) 10 meq in 100 mls @ 50 mls/hr IVPB Q2H MAGGIE Stop: 04/17/17 12:44 Last Admin: 04/17/17 09:22 Dose: 50 mls/hr Ibuprofen (Motrin Tab) 600 mg PO Q6H PRN PRN Reason: >100.4 Last Admin: 04/16/17 12:13 Dose: 600 mg Levalbuterol HCl (Xopenex) 0.63 mg IH [id number] PRN PRN Reason: Shortness of Breath Lorazepam (Ativan) 1 mg IVP Q4H PRN; Protocol PRN Reason: Anxiety Last Admin: 04/16/17 06:33 Dose: 1 mg Lorazepam (Ativan) 2 mg IVP Q2H MAGGIE PRN Reason: Protocol Last Admin: 04/17/17 08:09 Dose: 2 mg Metoprolol Tartrate (Lopressor) 5 mg IVP Q2H PRN PRN Reason: Heart Rate>100 Last Admin: 04/16/17 08:20 Dose: 5 mg Nicotine (Nicoderm Cq) 1 patch TD DAILY MAGGIE Last Admin: 04/17/17 09:23 Dose: 1 patch - Labs Labs: 04/17/17 06:30 04/17/17 06:30 PT 13.4 SECONDS (9.4-12.5) H 04/14/17 15:30 INR 1.22 (0.93-1.08) H 04/14/17 15:30 APTT 31.9 Seconds (25.1-36.5) 04/14/17 15:30 - Constitutional Appears: No Acute Distress - Head Exam Head Exam: ATRAUMATIC, NORMAL INSPECTION, NORMOCEPHALIC - Eye Exam Eye Exam: EOMI, Normal appearance - ENT Exam ENT Exam: Mucous Membranes Moist - Respiratory Exam Respiratory Exam: Clear to Ausculation Bilateral, NORMAL BREATHING PATTERN. absent: Rhonchi, Wheezes, Respiratory Distress - Cardiovascular Exam Cardiovascular Exam: REGULAR RHYTHM, +S1, +S2. absent: Tachycardia, Murmur - GI/Abdominal Exam GI & Abdominal Exam: Soft, Normal Bowel Sounds. absent: Distended, Firm, Guarding, Tenderness, Hyperactive Bowel Sounds - Extremities Exam Extremities Exam: Normal Inspection Additional comments: no flapping tremor - Neurological Exam Neurological Exam: Alert, Awake, Oriented x3 - Skin Skin Exam: Dry, Intact, Normal Color, Warm Assessment and Plan - Assessment and Plan (Free Text) Assessment: 46 year old alcoholic with asthma and hypertension who presents inebriated [place] [facility] [place] fevers, chills, and delirium tremens and transaminitis. Patient conutinued to have fever after admission, requiring cooling blanket and nsaid. Patient was afebrile overnight. LFT's are downtrending, most likely elevated due to alcoholic hepatitis Plan: 1.Alcohol withdrawal/delirium tremens - improving - will decrease Ativan to 2 mg q4h MAGGIE, continue prn - Multivitamin Infusion - continue banana bag, consider switching to PO - patient requested information about rehab, will consult social economist - pt eval 2. fever - afebrile over night, without leukocytosis - Influenza A and B negative, legionella negative - Cxr negative - will stop Azithromycin due to elevated LFTs - Continue Ceftriaxone - will use motrin 600mg PO prn q6 for fever, patient passed bedside swallow eval - will avoid Tylenol due to elevated LFTs - Albuterol/Ipratropium TID PRN for SOB - blood cultures negative after 48ho - urine cultures negative 3. transaminitis - down trending - with mild elevation in lipase - most likely from alcohol - hepatitis panel pending - avoid hepatotocix medication - RUQ Abdominal US reads as Contracted gallbladder state limits evaluation. Otherwise unremarkable. Hepatomegaly. - GI consulted 4. electrolyte abnormalities - mild hyponatremia and hypokalemia - will switch to banana bag in NS - potassium replaced - continue to monitor electrolytes 5. Hypertension - continue Carvedilol 25 mg BID 6. DVT/GI prophylaxis - Protonix 40 mg PO daily - SCD case discussed with attending <Vicente Zepeda - Last Filed: 04/18/17 09:58> Objective - Vital Signs/Intake and Output Vital Signs (last 24 hours): Temp Pulse Resp BP Pulse Ox 98 F 97 H 20 139/79 99 04/18/17 00:01 04/18/17 00:01 04/18/17 00:01 04/18/17 00:01 04/18/17 00:01 - Labs Labs: 04/17/17 06:30 04/17/17 06:30 PT 13.4 SECONDS (9.4-12.5) H 04/14/17 15:30 INR 1.22 (0.93-1.08) H 04/14/17 15:30 APTT 31.9 Seconds (25.1-36.5) 04/14/17 15:30 Assessment and Plan - Assessment and Plan (Free Text) Plan: discussed w/ resident at length went over meds labs xray tests condition plans orders reviewed
[2017-04-17] MEDS: cefTRIAXone 2 GM IN NS 2 GM/100 ML BAG IVPB SCH (10:15)
[2017-04-17 17:49] VITALS: TEMP 98
[2017-04-18 00:44] VITALS: BP 139/79; PULSE 97; RESP 20
== END 2017-04-18 01:49 | disposition left against medical advice (07) | DRG 894 ==
LOC: ED 14:54 → ERH 19:47 → 2RSO 22:34
PROVIDERS: ADMIT Internal Medicine; ATTEND Internal Medicine
DX: F10.231 Alcohol dependence with withdrawal delirium (principal); K70.10 Alcoholic hepatitis without ascites; E87.1 Hypo-osmolality and hyponatremia; F17.210 Nicotine dependence, cigarettes, uncomplicated; I10 Essential (primary) hypertension; R07.9 Chest pain, unspecified; J45.909 Unspecified asthma, uncomplicated; Z79.899 Other long term (current) drug therapy; R40.2412 Glasgow coma scale score 13-15, at arrival to emergency department; E87.6 Hypokalemia